=== PATIENT | male | born 1995 | race American Indian/Alaskan Native ===

== ENCOUNTER 2017-01-01 01:05 | Emergency (ER) | payer MEDICAID, OTHER ==
[2017-01-01] MEDS ORDERED: Sodium Chloride 0.9% 1,000 ML IV ONE (01:24)
[2017-01-01] MEDS ORDERED: Ondansetron 4 MG/2 ML SDV IV ONE (01:24)
[2017-01-01] MEDS ORDERED: HYDROmorphone 1 MG/ML Syringe IVPUSH ONE (01:24)
--- NOTE | 2017-01-01 01:28 | EDM.PDOC ---
ED HPI GENERAL MEDICAL PROBLEM - General Chief Complaint: Abdominal Pain Stated Complaint: SEVERE ABD PAIN Time Seen by Provider: 01/01/17 01:23 Source of Information: Reports: Patient History Limitations: Reports: No Limitations - History of Present Illness INITIAL COMMENTS - FREE TEXT/NARRATIVE: 21 yo [place] Male c/o RLQ pain X 2 hours. Pt. states previous episode one month ago and resolved after N&V for one hour. Pt. denies any trauma Onset: Today Onset Date: 12/31/16 Onset Time: 23:00 Duration: Hour(s):, Getting Worse Location: Reports: Abdomen (RLQ) Quality: Reports: Ache, Same as Previous Episode Severity: Moderate Improves with: Reports: Rest Worsens with: Reports: Movement Associated Symptoms: Reports: Loss of Appetite Lower Abdomen Pain Score (Numeric/FACES): 9 - Related Data Allergies Allergy/AdvReac Type Severity Reaction Status Date / Time No Known Allergies Allergy Verified 01/01/17 01:19 Home Meds: Home Meds . [No Known Home Meds] 01/01/17 [History] Past Medical History - Past Health History Medical/Surgical History: Denies Medical/Surgical History Social & Family History - Tobacco Use Smoking Status *Q: Current Status Unknown - Caffeine Use Caffeine Use: Reports: Soda - Recreational Drug Use Recreational Drug Use: No ED ROS GENERAL - Review of Systems Review Of Systems: See Below Constitutional: Reports: No Symptoms HEENT: Reports: No Symptoms Respiratory: Reports: No Symptoms Cardiovascular: Reports: No Symptoms Endocrine: Reports: No Symptoms GI/Abdominal: Reports: Abdominal Pain (RLQ) : Reports: No Symptoms Musculoskeletal: Reports: No Symptoms Skin: Reports: No Symptoms Neurological: Reports: No Symptoms Psychiatric: Reports: No Symptoms Hematologic/Lymphatic: Reports: No Symptoms Immunologic: Reports: No Symptoms ED EXAM, GI/ABD - Physical Exam Exam: See Below Exam Limited By: No Limitations General Appearance: Alert, WD/WN, No Apparent Distress Eyes: Bilateral: Normal Appearance, EOMI Ears: Normal External Exam Nose: Normal Inspection Throat/Mouth: Normal Inspection Head: Atraumatic Neck: Normal Inspection Respiratory/Chest: No Respiratory Distress, Lungs Clear Cardiovascular: Normal Peripheral Pulses, Regular Rate, Rhythm GI/Abdominal Exam: Guarding, Tender (RLQ), Abnormal Bowel Sounds (decreased) (Male) Exam: No Hernia Back Exam: Normal Inspection Extremities: Normal Inspection, Normal Range of Motion Neurological: Alert, Oriented, CN II-XII Intact, Normal Cognition Psychiatric: Normal Affect Skin Exam: Warm, Dry, Intact Lymphatic: No Adenopathy Course - Vital Signs Text/Narrative:: Abdomen Pelvis CT show Acute uncomplicated Appendicitis Last Recorded V/S: Last Vital Signs Temp 37.3 C 01/01/17 01:07 Pulse 91 01/01/17 01:07 Resp 17 01/01/17 01:07 BP 135/74 01/01/17 01:07 Pulse Ox 100 01/01/17 01:07 - Orders/Labs/Meds Orders: Active Orders 24 hr Category Date Time Status DRUG SCREEN, URINE [URCHEM] Stat Lab 01/01/17 01:24 Uncollected UA W/MICROSCOPIC [URIN] Stat Lab 01/01/17 01:24 Uncollected Sodium Chloride 0.9% [Normal Saline] 1,000 ml Med 01/01/17 01:24 Active IV .BOLUS Medication Orders Sodium Chloride (Normal Saline) 1,000 mls @ 999 mls/hr IV .BOLUS ONE Stop: 01/01/17 02:24 Last Admin: 01/01/17 01:36 Dose: 999 mls/hr Labs: Laboratory Tests 01/01/17 01/01/17 Range/Units 01:25 01:25 WBC 11.8 H (5.0-10.0) 10^3/uL RBC 4.91 (4.6-6.2) 10^6/uL Hgb 15.8 (14.0-18.0) g/dL Hct 45.0 (40.0-54.0) % MCV 91.6 (80-100) fL MCH 32.2 (27.0-34.0) pg MCHC 35.1 H (33.0-35.0) g/dL Plt Count 179 (150-450) 10^3/uL Neut % (Auto) 88.9 H (42.2-75.2) % Lymph % (Auto) 3.1 L (20.5-50.1) % [place] % (Auto) 7.7 (2-8) % Eos % (Auto) 0.2 L (1.0-3.0) % Baso % (Auto) 0.1 (0.0-1.0) % Sodium 136 (135-145) mmol/L Potassium 3.8 (3.6-5.0) mmol/L Chloride 100 L (101-111) mmol/L Carbon Dioxide 25.0 (21.0-31.0) mmol/L Anion Gap 14.8 BUN 10 (7-18) mg/dL Creatinine 0.8 (0.6-1.3) mg/dL Est Cr Clr Drug Dosing 128.64 mL/min Estimated GFR (MDRD) > 60 BUN/Creatinine Ratio 12.50 Glucose 145 H (74-105) mg/dL Calcium 9.1 (8.4-10.2) mg/dl Total Bilirubin 1.0 (0.2-1.0) mg/dL AST 23 (10-42) IU/L ALT 11 (10-60) IU/L Alkaline Phosphatase 102 (42-121) IU/L Total Protein 7.5 (6.7-8.2) g/dl Albumin 4.5 (3.2-5.5) g/dl Globulin 3.0 Albumin/Globulin Ratio 1.50 Amylase 20 L (28-100) U/L Lipase 12 L (22-51) U/L Meds: Medications Generic Name Dose Route Start Last Admin Trade Name Freq PRN Reason Stop Dose Admin Sodium Chloride 1,000 mls @ 999 mls/hr 01/01/17 01:24 01/01/17 01:36 Normal Saline IV 01/01/17 02:24 999 mls/hr .BOLUS ONE Administration Discontinued Medications Generic Name Dose Route Start Last Admin Trade Name Freq PRN Reason Stop Dose Admin Hydromorphone HCl 1 mg 01/01/17 01:24 01/01/17 01:36 Dilaudid IVPUSH 01/01/17 01:25 1 mg ONETIME ONE Administration Iopamidol 75 ml 01/01/17 02:15 01/01/17 02:16 Isovue-300 (61%) IVPUSH 01/01/17 02:16 75 ml ONETIME ONE Administration Ondansetron HCl 4 mg 01/01/17 01:24 01/01/17 01:36 Zofran IV 01/01/17 01:25 4 mg ONETIME ONE Administration Departure - Departure Time of Disposition: 02:27 Disposition: DC/Tfer to Acute Hospital 02 Condition: Good Clinical Impression: Appendicitis Qualifiers: Appendicitis type: acute appendicitis Acute appendicitis type: with localized peritonitis Qualified Code(s): K35.3 - Acute appendicitis with localized peritonitis Leukocytosis Qualifiers: Leukocytosis type: unspecified Qualified Code(s): D72.829 - Elevated white blood cell count, unspecified - Discharge Information Forms: ED Department Discharge, Interfacility Transfer EMTALA - My Orders Last 24 Hours: My Active Orders 01/01/17 01:24 DRUG SCREEN, URINE [URCHEM] Stat UA W/MICROSCOPIC [URIN] Stat Sodium Chloride 0.9% [Normal Saline] 1,000 ml IV .BOLUS - Assessment/Plan Last 24 Hours: My Active Orders 01/01/17 01:24 DRUG SCREEN, URINE [URCHEM] Stat UA W/MICROSCOPIC [URIN] Stat Sodium Chloride 0.9% [Normal Saline] 1,000 ml IV .BOLUS
[2017-01-01 01:51] LABS: CHLORIDE,CL 100 mmol/L (101-111); SODIUM,NA 136 mmol/L (135-145)
[2017-01-01] MEDS ORDERED: Iopamidol 612 MG/ML 75 ML Bottle IVPUSH ONE (02:15)
[2017-01-01] MEDS ORDERED: cefOXitin 1 GM Vial ONE (02:19)
== END 2017-01-01 02:45 ==
LOC: DL.ED 01:05
DX: K35.3 Acute appendicitis with localized peritonitis (principal); D72.829 Elevated white blood cell count, unspecified
CPT/HCPCS: 36415; 74177; 80053; 82150; 83690; 85025; 96361; 96374; 96375; 99285; J0694; J1170; J2405; J7030; Q9967; 99284

== ENCOUNTER 2018-05-10 12:46 | Emergency (ER) | payer OTHER ==
[2018-05-10] MEDS ORDERED: Lidocaine 1% 30 ML SDV INJECT ONE (13:37)
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
== END 2018-05-10 14:13 | disposition home or self-care (01) ==
LOC: DL.ED 12:46
DX: S01.112A Laceration without foreign body of left eyelid and periocular area, initial encounter (principal); S01.81XA Laceration without foreign body of other part of head, initial encounter; S09.90XA Unspecified injury of head, initial encounter; Y04.2XXA Assault by strike against or bumped into by another person, initial encounter
CPT/HCPCS: 12014; 99282; J2001

== ENCOUNTER 2020-09-30 20:20 | Emergency (ER) | payer OTHER ==
[2020-09-30] MEDS ORDERED: Acetaminophen 325 MG Tab PO ONE (21:11)
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
--- NOTE | 2020-10-01 00:44 | EDM.PDOC ---
ED HPI GENERAL MEDICAL PROBLEM - General Chief Complaint: Lower Extremity Injury/Pain Stated Complaint: INJURED LEFT ANKLE Time Seen by Provider: 09/30/20 21:30 Source of Information: Reports: Patient History Limitations: Reports: No Limitations - History of Present Illness INITIAL COMMENTS - FREE TEXT/NARRATIVE: ED with c/o pain left outer ankle, Reported playing basketballl last night and rolled ankle. Arrival ambulatory. Left Ankle Pain Score (Numeric/FACES): 8 - Related Data Allergies Allergy/AdvReac Type Severity Reaction Status Date / Time No Known Allergies Allergy Verified 09/30/20 21:01 Home Meds: Home Meds . [No Known Home Meds] 01/01/17 [History] Past Medical History - Past Health History Medical/Surgical History: Denies Medical/Surgical History - Past Surgical History GI Surgical History: Reports: Appendectomy Social & Family History - Family History Family Medical History: No Pertinent Family History - Tobacco Use Tobacco Use Status *Q: Current Every Day Tobacco User Years of Tobacco use: 2 Packs/Tins Daily: 0.1 - Caffeine Use Caffeine Use: Reports: Soda - Recreational Drug Use Recreational Drug Use: Yes Recreational Drug Type: Reports: Marijuana/Hashish Recreational Drug Use Frequency: Weekly Review of Systems - Review of Systems Review Of Systems: Comprehensive ROS is negative, except as noted in HPI. ED EXAM, GENERAL - Physical Exam Exam: See Below Exam Limited By: No Limitations General Appearance: Alert, No Apparent Distress Eye Exam: Bilateral Eye: EOMI Ears: Normal External Exam Nose: Normal Inspection Throat/Mouth: Normal Inspection Head: Atraumatic, Normocephalic Neck: Normal Inspection Respiratory/Chest: No Respiratory Distress, Lungs Clear Cardiovascular: Regular Rate, Rhythm Extremities: Joint Swelling (mild left lateral swelling), Limited Range of Motion (flexion/ extension, medial rotation) Neurological: Alert, Oriented Psychiatric: Normal Affect Skin Exam: Warm, Dry, Intact Course - Vital Signs Last Recorded V/S: Last Vital Signs Temp 98 F 09/30/20 20:57 Pulse 64 09/30/20 20:57 Resp 14 09/30/20 20:57 BP 134/91 H 09/30/20 20:57 Pulse Ox 100 09/30/20 20:57 - Orders/Labs/Meds Meds: Medications Discontinued Medications Generic Name Dose Route Start Last Admin Trade Name Freq PRN Reason Stop Dose Admin Acetaminophen 650 mg 09/30/20 21:11 09/30/20 21:15 Acetaminophen 325 Mg Tab PO 09/30/20 21:12 650 mg NOW ONE Administration Departure - Departure Time of Disposition: 00:41 Disposition: Home, Self-Care 01 Condition: Good Clinical Impression: Ankle sprain Qualifiers: Encounter type: initial encounter Involved ligament of ankle: unspecified ligament Laterality: left Qualified Code(s): S93.402A - Sprain of unspecified ligament of left ankle, initial encounter - Discharge Information *PRESCRIPTION DRUG MONITORING PROGRAM REVIEWED*: No *COPY OF PRESCRIPTION DRUG MONITORING REPORT IN PATIENT JOSEPHINE: No Instructions: Ankle Sprain, [id number] Forms: ED Department Discharge Additional Instructions: ice elevate rest alternate tylenol and ibuprofen every 4 hours as needed splint for comfort Sepsis Event Note (ED) - Evaluation Sepsis Screening Result: No Definite Risk
== END 2020-10-01 00:56 | disposition home or self-care (01) ==
LOC: DL.ED 20:20
DX: S93.402A Sprain of unspecified ligament of left ankle, initial encounter (principal); Z72.0 Tobacco use; X50.1XXA Overexertion from prolonged static or awkward postures, initial encounter; Y93.67 Activity, basketball
CPT/HCPCS: 73600; 99283; A9270

== ENCOUNTER 2020-12-03 12:47 | Emergency (ER) | payer OTHER ==
[2020-12-03] MEDS ORDERED: Diphtheria,Pertussis(Acell),Tetanus Vaccine 0.5 ML Syringe IM ONE (13:39)
[2020-12-03] MEDS ORDERED: Lidocaine 1% 30 ML SDV INJECT ONE (13:40)
[2020-12-03] MEDS ORDERED: Clindamycin HCl 150 MG Cap PO ONE (13:40)
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
== END 2020-12-03 14:31 ==
LOC: DL.ED 12:47
DX: S01.511A Laceration without foreign body of lip, initial encounter (principal); Z23 Encounter for immunization; Z72.0 Tobacco use; Y04.0XXA Assault by unarmed brawl or fight, initial encounter; Y92.149 Unspecified place in prison as the place of occurrence of the external cause
CPT/HCPCS: 12011; 90471; 90715; 99283; A9270

== ENCOUNTER 2022-06-07 09:33 | Emergency (ER) | payer MEDICAID ==
[2022-06-07] MEDS ORDERED: Bacitracin Oint 1 GM U/D Packet TOP ONE (09:59)
== END 2022-06-07 10:17 | disposition home or self-care (01) ==
LOC: DL.ED 09:33
DX: S61.217A Laceration without foreign body of left little finger without damage to nail, initial encounter (principal); Z72.0 Tobacco use; W26.0XXA Contact with knife, initial encounter
CPT/HCPCS: 99282; A9270-GY

== ENCOUNTER 2023-07-26 14:20 | Emergency (ER) | payer MEDICAID ==
[2023-07-26 15:28] LABS: BASOPHILS PERCENT AUTO 0.7 % (0.0-1.0); HEMATOCRIT 47.1 % (40.0-54.0); HEMOGLOBIN 16.5 g/dL (14.0-18.0); LYMPHOCYTES PERCENT AUTO 16.1 % (20.5-50.1); MEAN CORPUSCULAR HEMOGLOBIN 33.3 pg (27.0-34.0); MONOCYTES PERCENT AUTO 13.7 % (2-8); NEUTROPHILS PERCENT AUTO 69.5 % (42.2-75.2); PLATELET COUNT,PLT 294 10^3/uL (150-450); RED BLOOD CELL COUNT 4.96 10^6/uL (4.6-6.2); WHITE BLOOD CELL COUNT,WBC 8.5 10^3/uL (5.0-10.0)
[2023-07-26] MEDS: MVI, Adult with Vitamin K 10 ML, Folic Acid 1 MG, Thiamine 100 MG in Lactated Ringers 1... IV ONE (15:35)
[2023-07-26] MEDS: Ketorolac 30 MG/ML SDV IVPUSH ONE (15:36)
[2023-07-26] MEDS: Sodium Chloride 0.9% 10 ML Syringe FLUSH PRN (15:38)
[2023-07-26 15:48] LABS: A/G RATIO 1.2; ALANINE AMINOTRANSFERASE,ALT 36 U/L (16-63); ALBUMIN 4.3 g/dL (3.4-5.0); ALKALINE PHOSPHATASE 154 U/L (46-116); ANION GAP 15.7 mEq/L (7-13); ASPARTATE AMNIOTRANSFERASE,AST 52 U/L (15-37); BILIRUBIN TOTAL 0.8 mg/dL (0.2-1.0); BLOOD UREA NITROGEN,BUN 10 mg/dL (7-18); BUN/CREATININE RATIO 9.2 (No establ ref range); CALCIUM 8.3 mg/dL (8.5-10.1); CARBON DIOXIDE,CO2 26 mmol/L (21-32); CHLORIDE,CL 106 mmol/L (98-107); CREATININE 1.09 mg/dL (0.70-1.30); ETHANOL BLOOD MEDICAL 30 mg/dL (0); GLUCOSE RANDOM 85 mg/dL (70-99); POTASSIUM,K 3.7 mmol/L (3.5-5.1); PROTEIN TOTAL,TP 7.8 g/dL (6.4-8.2); SODIUM,NA 144 mmol/L (136-145)
[2023-07-26 16:00] LABS: ESTIMATED GFR 97 mL/min (>=60)
[2023-07-26 16:02] LABS: PROTHROMBIN TIME 10.3 SEC (9.0-12.0); PTT,PARTIAL THROMBOPLSTIN TIME 23.3 SEC (22.0-34.0)
[2023-07-26] MEDS: Bacitracin Oint 1 GM U/D Packet TOP ONE (16:23)
[2023-07-26] MEDS: traMADol 50 MG Tab PO ONE (16:33)
[2023-07-26] MEDS: Diphtheria,Pertussis(Acell),Tetanus Vaccine 0.5 ML Syringe IM ONE (16:34)
== END 2023-07-26 16:43 | disposition home or self-care (01) ==
LOC: DL.ED 14:20
DX: S00.93XA Contusion of unspecified part of head, initial encounter (principal); Z23 Encounter for immunization; W19.XXXA Unspecified fall, initial encounter
CPT/HCPCS: 36415; 70450; 71045; 72125; 80053; 80307; 85025; 85610; 85730; 90471; 90715; 96365; 96375; 99285; A9270; J1885; J3411; J7120; J3490

== ENCOUNTER 2024-04-02 04:55 | Emergency (ER) | payer MEDICAID ==
[2024-04-02] MEDS ORDERED: Sodium Chloride 0.9% 10 ML Syringe FLUSH PRN (05:34)
[2024-04-02] MEDS: Lactated Ringers 1,000 ML IV ONE (05:48)
[2024-04-02 05:49] LABS: BASOPHILS PERCENT AUTO 0.4 % (0.0-1.0); EOSINOPHILS PERCENT AUTO 0.1 % (1.0-3.0); LYMPHOCYTES PERCENT AUTO 6.1 % (20.5-50.1); MEAN CORPUSCULAR HEMOGLOBIN 33.3 pg (27.0-34.0); MEAN CORPUSCULAR HGB CONC 35.6 g/dL (33.0-35.0); MEAN CORPUSCULAR VOLUME 93.6 fL (80-100); MONOCYTES PERCENT AUTO 15.1 % (2-8); NEUTROPHILS PERCENT AUTO 78.3 % (42.2-75.2); PLATELET COUNT,PLT 209 10^3/uL (150-450); RED BLOOD CELL COUNT 4.81 10^6/uL (4.6-6.2); WHITE BLOOD CELL COUNT,WBC 7.7 10^3/uL (5.0-10.0)
[2024-04-02 06:08] LABS: A/G RATIO 1.1; ANION GAP 13.3 mEq/L (7-13); BILIRUBIN TOTAL 0.8 mg/dL (0.2-1.0); BUN/CREATININE RATIO 5.2 (No establ ref range); C-REACTIVE PROTEIN 3.77 ng/dL (<=0.50); CALCIUM 8.6 mg/dL (8.5-10.1); CREATININE 0.97 mg/dL (0.70-1.30); EST CRCL DRUG DOSING (CG) 115.4 mL/min; MAGNESIUM 1.3 mg/dL (1.8-2.4); POTASSIUM,K 3.3 mmol/L (3.5-5.1); PROTEIN TOTAL,TP 7.7 g/dL (6.4-8.2)
[2024-04-02] MEDS: Magnesium Sulfate/Water Premix 2 GM in Premix Bag 1 BAG IV ONE (06:31)
[2024-04-02] MEDS: Potassium Chloride 10 MEQ Tab.ER PO ONE (06:31)
[2024-04-02] MEDS: Pantoprazole 40 MG Vial IVPUSH ONE (07:13)
[2024-04-02] MEDS: GI Cocktail Oral Solution 30 ML PO ONE (07:21)
[2024-04-02] MEDS: Folic Acid 1 MG Tab PO ONE (07:24)
[2024-04-02] MEDS: Multivitamin Tab PO ONE (07:25)
[2024-04-02] MEDS: Thiamine 100 MG Tab PO ONE (07:25)
== END 2024-04-02 07:33 | disposition home or self-care (01) ==
LOC: DL.ED 04:55
DX: K29.70 Gastritis, unspecified, without bleeding (principal); F17.210 Nicotine dependence, cigarettes, uncomplicated; Z90.49 Acquired absence of other specified parts of digestive tract
CPT/HCPCS: 36415; 71045; 80053; 83735; 84484; 85025; 85379; 86140; 87428-QW; 93005; 93010; 96361; 96365; 96375; 99284; 99285-25; A9270-GY; J2470; J3475; J7120

== ENCOUNTER 2024-06-13 04:15 | Emergency (ER) | payer MEDICAID ==
[2024-06-13 04:42] LABS: HEMATOCRIT 46.2 % (40.0-54.0); HEMOGLOBIN 16.7 g/dL (14.0-18.0); MEAN CORPUSCULAR HEMOGLOBIN 33.5 pg (27.0-34.0); MEAN CORPUSCULAR HGB CONC 36.1 g/dL (33.0-35.0); MEAN CORPUSCULAR VOLUME 92.8 fL (80-100); PLATELET COUNT,PLT 357 10^3/uL (150-450); RED BLOOD CELL COUNT 4.98 10^6/uL (4.6-6.2); WHITE BLOOD CELL COUNT,WBC 17.3 10^3/uL (5.0-10.0)
[2024-06-13 04:55] LABS: A/G RATIO 1.1; ALANINE AMINOTRANSFERASE,ALT 30 U/L (16-63); ALBUMIN 4.1 g/dL (3.4-5.0); ALKALINE PHOSPHATASE 181 U/L (46-116); BILIRUBIN TOTAL 0.5 mg/dL (0.2-1.0); BLOOD UREA NITROGEN,BUN 19 mg/dL (7-18); CALCIUM 8.2 mg/dL (8.5-10.1); CHLORIDE,CL 111 mmol/L (98-107); CREATININE 1.27 mg/dL (0.70-1.30); ETHANOL BLOOD MEDICAL 260 mg/dL (0); GLUCOSE RANDOM 104 mg/dL (70-99); MAGNESIUM 1.7 mg/dL (1.8-2.4); POTASSIUM,K 3.6 mmol/L (3.5-5.1); PROTEIN TOTAL,TP 7.9 g/dL (6.4-8.2)
[2024-06-13] MEDS: Sodium Chloride 0.9% 1,000 ML IV ONE (05:01)
[2024-06-13 05:04] LABS: ANION GAP 19.6 mEq/L (7-13); CARBON DIOXIDE,CO2 21 mmol/L (21-32); ESTIMATED GFR 80 mL/min (>=60); SODIUM,NA 148 mmol/L (136-145)
[2024-06-13 05:16] LABS: ASPARTATE AMNIOTRANSFERASE,AST 35 U/L (15-37)
[2024-06-13 05:22] LABS: BAND PERCENT MAN 2 %; LYMPHOCYTES PERCENT MAN 5 % (20-50); MONOCYTES PERCENT MAN 3 % (2-8); SEG NEUTROPHILS PERCENT MAN 90 % (42-75)
[2024-06-13] MEDS: ceFAZolin 1 GM Vial IVPUSH ONE (06:03)
[2024-06-13] MEDS: fentaNYL 100 MCG/2 ML SDV IVPUSH ONE (06:43)
[2024-06-13] MEDS: Acetaminophen 500 MG Tab PO ONE (08:55)
[2024-06-16] MEDS: fentaNYL 100 MCG/2 ML SDV ONE (09:45)
== END 2024-06-13 09:58 ==
LOC: DL.ED 04:15
DX: S01.03XA Puncture wound without foreign body of scalp, initial encounter (principal); W32.0XXA Accidental handgun discharge, initial encounter; Y93.89 Activity, other specified
CPT/HCPCS: 12013; 12032; 12052; 36415; 70450; 71045; 72125; 73590-LT; 80053; 80307; 83735; 85025; 85730; 96361; 96374; 96375; 99284; 99285; A9270-GY; J0690; J3010; J7030

== ENCOUNTER 2024-06-13 19:58 | Emergency (ER) | payer MEDICAID, OTHER ==
[2024-06-13] MEDS: Take Home: Cephalexin 500 MG Cap, 6 Cap Pack PO ONE (20:48)
[2024-06-13] MEDS: Acetaminophen 325 MG Tab PO ONE (20:48)
== END 2024-06-13 20:57 ==
LOC: DL.ED 19:58
DX: S06.0X0A Concussion without loss of consciousness, initial encounter (principal); Z90.49 Acquired absence of other specified parts of digestive tract; X50.9XXA Other and unspecified overexertion or strenuous movements or postures, initial encounter
CPT/HCPCS: 99283; 99284; A9270

== ENCOUNTER 2024-06-19 15:06 | Emergency (ER) | payer BC, MEDICAID, OTHER | END 2024-06-19 15:58 | LOC: DL.ED 15:06 | DX: T81.33XA Disruption of traumatic injury wound repair, initial encounter (principal) | CPT/HCPCS: 12020; 99282; 99282-25 ==